=== PATIENT | female | born 1980 | race Caucasian/White ===

== ENCOUNTER 2024-01-22 21:23 | Emergency (ER) | payer BC ==
[~2024-01-22] VITALS: Ht 149.9 cm; Wt 57.6 kg
[2024-01-22 22:35] VITALS: TEMP 98.2
[2024-01-22] MEDS ORDERED: KETOROLAC TROMETHAMINE INJ 30 MG/ML VIAL ONE (23:22)
[2024-01-22] MEDS: KETOROLAC TROMETHAMINE INJ 60 MG/2 ML VIAL IM ONE (23:27)
[2024-01-22] MEDS: LIDOCAINE /MPF 1% VIAL 5 ML VIAL TP ONE (23:27)
[2024-01-22] MEDS ORDERED: LIDOCAINE 1% INJ 50 ML MDV IJ ONE (23:35)
[2024-01-22] MEDS ORDERED: CEPH500C2 PO (23:53)
[2024-01-23] MEDS ORDERED: HYDROCODONE/APAP 5/325MG TABLET ONE
[2024-01-23] MEDS: HYDROCODONE/APAP 5/325MG TABLET PO ONE (00:08)
[2024-01-23 00:15] VITALS: BP 132/84; O2SAT 100
== END 2024-01-23 00:16 | disposition home or self-care (01) ==
LOC: ER 21:30
DX: S81.811A Laceration without foreign body, right lower leg, initial encounter (principal); G43.909 Migraine, unspecified, not intractable, without status migrainosus; W54.0XXA Bitten by dog, initial encounter; Y93.89 Activity, other specified; Y92.89 Other specified places as the place of occurrence of the external cause; Y99.8 Other external cause status
CPT/HCPCS: 99283; 12001; 96372; J3490; J1885